=== PATIENT | male | born 1980 | race American Indian/Alaskan Native ===

== ENCOUNTER 2016-08-31 23:14 | Inpatient (IN) | payer BC ==
[2016-08-31] MEDS ORDERED: ATIVAN ONE ×2 (23:27→23:28)
[2016-08-31] MEDS ORDERED: ATIVAN IV ONE (23:50)
[2016-08-31 23:54] LABS: Hematocrit 55.7 % (35.5-45.6); Hemoglobin 17.6 gm/dl (11.8-15.2); Mean Corpuscular HGB Conc 32 % (32-34); Mean Corpuscular Hemoglobin 30 pg (28-32); Mean Corpuscular Volume 95 fl (84-94); Platelet Count 394 K/mm3 (140-440); Red Blood Count 5.84 M/mm3 (3.65-5.03); Red Cell Distribution Width 13.7 % (13.2-15.2); White Blood Count 19.3 K/mm3 (4.5-11.0)
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
[2016-09-01 00:06] LABS: Albumin 4.3 g/dL (3.9-5); Albumin/Globulin Ratio 1.3 %; Alkaline Phosphatase 69 units/L (35-129); BUN/Creatinine Ratio 12.14; Bilirubin,Total 0.2 mg/dL (0.1-1.2); Blood Urea Nitrogen 17 mg/dL (9-20); Calcium 9.3 mg/dL (8.4-10.2); Chloride 96.3 mmol/L (98-107); Creatine Kinase 315 units/L (55-170); Glucose 171 mg/dL (75-100); Sodium 141 mmol/L (137-145); Total Protein 7.7 g/dL (6.3-8.2)
[2016-09-01 00:08] LABS: Anion Gap 41 mmol/L; Potassium 4.4 mmol/L (3.6-5.0)
[2016-09-01 00:09] LABS: Alanine Aminotransferase 25 units/L (7-56)
[2016-09-01 00:10] LABS: Carbon Dioxide 8 mmol/L (22-30)
[2016-09-01 00:25] LABS: Urine Drugs of Abuse Note Disclamer
[2016-09-01 00:43] LABS: Bilirubin,Urine NEG (Negative); Blood,Urine MOD (Negative); Ketones,Urine NEG (Negative); Leukocyte Esterase,Urine NEG (Negative); Mucus,Urine FEW /HPF; Nitrite,Urine NEG (Negative); Urobilinogen,Urine < 2.0 mg/dL (<2.0)
--- NOTE | 2016-09-01 01:07 | Cat Scan Report ---
FINAL REPORT PROCEDURE: CT HEAD/BRAIN WO CON TECHNIQUE: Computerized tomography of the head was performed without contrast material. HISTORY: fall, seizures COMPARISON: No prior studies are available for comparison. FINDINGS: Skull and scalp: Normal. Paranasal sinuses: Normal. Ventricles and subarachnoid spaces: Normal. Cerebrum: No evidence of hemorrhage, acute infarction or mass . Cerebellum and brainstem: No evidence of hemorrhage, acute infarction or mass. Vasculature: Normal. Comments: None. IMPRESSION: There is no evidence of an acute intracranial process
[2016-09-01] MEDS ORDERED: KEPPRA 1,000 MG/NS 0.75% 100ML 1,000 MG/100 ML BAG IV ONE (01:36)
[2016-09-01] MEDS ORDERED: HALDOL IM ONE (01:57)
[2016-09-01] MEDS ORDERED: HALDOL IM PRN (02:16)
--- NOTE | 2016-09-01 02:58 | Admit Criteria Form ---
Admission Criteria Documentation: SEIZURE Clinical Indications for Admission to Inpatient Care (Place 'X' for any and all applicable criteria): Admission is indicated for seizure and ANY ONE of the following(1)(2)(3)(4)(5): [ X]I. Inpatient admission required rather than observation care (Also use Seizure: Observation Care Criteria as appropriate) because of ANY ONE of the following: [X ]a) Altered mental status that is severe or persistent [ ]b) New focal neurologic deficit that is severe or persistent [ ]c) Metabolic disorder (eg, hypoglycemia, hyponatremia) that is severe or persistent [X ]d) Recurrent seizure [ ]e) Outpatient antiseizure regimen cannot be established (eg , patient cannot tolerate medication, initiation requires inpatient care) [ ]f) Need for ongoing intravenous infusion of antiseizure medication [ ]g) Cardiac arrhythmias of immediate concern [ ]h) Cerebral bleeding, hydrocephalus, or vasospasm monitoring (14) [ ]i) Increased intracranial pressure or cerebral edema monitoring (15) [ ]j) Other treatment or monitoring requiring inpatient admission [ ]II. Status epilepticus [A] or repetitive seizures not controlled with emergent treatment (6)(8) [ ]III. Brain disorder (eg, tumor, edema, and hydrocephalus) that requiring monitoring or intervention available only at inpatient level of care. [ ]IV. Brain insult (eg, severe trauma, stroke, drug toxicity, or withdrawal) that requires monitoring or intervention available only at inpatient level of care (10)(11) Extended stay beyond goal length of stay may be needed for (22) [ ]a) Complications of status epilepticus [ ]b) Refractory status epilepticus [ ]c) Etiology-specific therapy for conditions such as BAGMAN/WOMAN infection, head injury,eclampsia, severe metabolic abnormalities, and brain tumor [ ]d) Residual neurologic damage, [ ]e) Initiation of significant change to anticonvulsant treatment [ ]f) Older patients (65 years or older) [ ]g) Patient requiring intubation (eg, to protect airway) The original [employer] [employer] [employer] content created by [facility] has been revised. The portions of the content which have been revised are identified through the use of italic text or in bold, and [facility] has neither reviewed nor approved the modified material. All other unmodified content is copyright [facility] [employer]. Please see references footnoted in the original [facility] edition 2016 Admission Criteria Met: Yes
[2016-09-01] MEDS: NACL 0.9% 1000 ML 1,000 ML IV SCH ×3 (03:06→23:25)
[2016-09-01] MEDS: MORPHINE IV PRN ×2 (03:06→12:54)
[2016-09-01 03:57] LABS: BUN/Creatinine Ratio 13.63; Blood Urea Nitrogen 15 mg/dL (9-20); Calcium 8.4 mg/dL (8.4-10.2); Carbon Dioxide 24 mmol/L (22-30); Chloride 102.9 mmol/L (98-107); Glucose 120 mg/dL (75-100); Potassium 3.8 mmol/L (3.6-5.0); Sodium 140 mmol/L (137-145)
[2016-09-01 03:59] LABS: Anion Gap 17 mmol/L
[2016-09-01 04:41] LABS: ISTAT Base Excess -4; ISTAT DEVICE 0; ISTAT PH 7.348 (7.35-7.45); ISTAT PO2 80 (80-105); ISTAT SO2 95; ISTAT TCO2 23
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
[2016-09-01] MEDS: ROCEPHIN/NS 1 GM/50 ML 1 GM/50 ML BAG IV SCH (06:05)
[2016-09-01] MEDS: ATIVAN IV PRN (06:12)
[2016-09-01 06:43] LABS: Hematocrit 46.2 % (35.5-45.6); Hemoglobin 15.3 gm/dl (11.8-15.2); Mean Corpuscular HGB Conc 33 % (32-34); Mean Corpuscular Hemoglobin 30 pg (28-32); Mean Corpuscular Volume 90 fl (84-94); Platelet Count 251 K/mm3 (140-440); Red Blood Count 5.12 M/mm3 (3.65-5.03); Red Cell Distribution Width 13.1 % (13.2-15.2); White Blood Count 17.7 K/mm3 (4.5-11.0)
[2016-09-01 06:52] LABS: Anisocytosis 1+; Basophils % (Manual) 0 % (0.0-1.8); Blastocytes % (Manual) 0 %; Hypochromasia 1+; Macrocytosis Few
[2016-09-01 06:53] LABS: Diff Status Complete; Large Platelets Few
--- NOTE | 2016-09-01 10:03 | XRay Report ---
Left humerus 2 views: History: Pain. Findings: No fracture, periosteal reaction or lytic lesion. No soft tissue calcification. Impression: Essentially negative left humerus.
--- NOTE | 2016-09-01 10:03 | XRay Report ---
Left forearm single view: History: Arm pain. Findings: There is catheter noted in the soft tissue dorsal aspect of forearm. No periosteal reaction or lytic lesion. Impression: Single view limited study. No bony abnormality.
--- NOTE | 2016-09-01 10:04 | XRay Report ---
Single view chest: History: Shortness of breath. Findings: Normal cardiomediastinal silhouette. Trachea is midline. No consolidation, pneumothorax or pleural effusion. Impression: No acute cardiopulmonary findings.
--- NOTE | 2016-09-01 11:21 | Progress Note ---
Assessment and Plan Assessment and plan: 1. Seizure disorder. Patient's reports that patient may have what sounds like absence seizures as a child around the age of 17. Patient with no seizure activity as noted in the HPI. No seizure activity since admission. Check EEG and MRI of the brain. 2. SIRS. Patient with no evidence or source of infection. However, patient with leukocytosis and elevated lactic acid levels. We will follow-up blood cultures. Continue empiric ceftriaxone. 3. Left arm pain. Etiology is unknown. Check sedimentation rate. Plain films are negative. Consider orthopedics consultation. 4. Acute encephalopathy. Etiology secondary to #1. Resolved. History Interval history: No new issues overnight. Hospitalist Physical - Constitutional Vitals: Temp Pulse Resp BP Pulse Ox 99.9 F H 97 H 22 162/85 95 09/01/16 07:40 09/01/16 07:40 09/01/16 07:40 09/01/16 07:40 09/01/16 07:40 General appearance: Present: no acute distress, well-nourished - EENT Eyes: Present: PERRL, EOM intact ENT: hearing intact, clear oral mucosa, dentition normal - Neck Neck: Present: supple, normal ROM - Respiratory Respiratory effort: normal Respiratory: bilateral: CTA - Cardiovascular Rhythm: regular Heart Sounds: Present: S1 & S2. Absent: gallop, rub - Extremities Extremities: no ischemia, No edema, Full ROM - Abdominal General gastrointestinal: soft, non-tender, non-distended, normal bowel sounds - Integumentary Integumentary: Present: clear, warm, dry - Neurologic Neurologic: CNII-XII intact, moves all extremities Results - Labs CBC & Chem 7: 09/01/16 05:56 09/01/16 03:15 Labs: Laboratory Last Values WBC 17.7 K/mm3 (4.5-11.0) H 09/01/16 05:56 RBC 5.12 M/mm3 (3.65-5.03) H 09/01/16 05:56 Hgb 15.3 gm/dl (11.8-15.2) H 09/01/16 05:56 Hct 46.2 % (35.5-45.6) H D 09/01/16 05:56 MCV 90 fl (84-94) D 09/01/16 05:56 MCH 30 pg (28-32) 09/01/16 05:56 MCHC 33 % (32-34) 09/01/16 05:56 RDW 13.1 % (13.2-15.2) L 09/01/16 05:56 Plt Count 251 K/mm3 (140-440) 09/01/16 05:56 Lymph # Cloth Doubling Machine Operator 08/31/16 23:25 Add Manual Diff Complete 08/31/16 23:25 Total Counted 100 08/31/16 23:25 Seg Neuts % (Manual) 30.0 % (40.0-70.0) L 08/31/16 23:25 Band Neutrophils % 16.0 % 08/31/16 23:25 Lymphocytes % (Manual) 23.0 % (13.4-35.0) 08/31/16 23:25 Reactive Lymphs % (Man) 0 % 08/31/16 23:25 Monocytes % (Manual) 24.0 % (0.0-7.3) H 08/31/16 23:25 Eosinophils % (Manual) 1.0 % (0.0-4.3) 08/31/16 23:25 Basophils % (Manual) 0 % (0.0-1.8) 08/31/16 23:25 Metamyelocytes % 6.0 % 08/31/16 23:25 Myelocytes % 0 % 08/31/16 23:25 Promyelocytes % 0 % 08/31/16 23:25 Blast Cells % 0 % 08/31/16 23:25 Nucleated RBC % Not Reportable 08/31/16 23:25 Seg Neutrophils # Man 5.8 K/mm3 (1.8-7.7) 08/31/16 23:25 Band Neutrophils # 3.1 K/mm3 08/31/16 23:25 Lymphocytes # (Manual) 4.4 K/mm3 (1.2-5.4) 08/31/16 23:25 Abs React Lymphs (Man) 0.0 K/mm3 08/31/16 23:25 Monocytes # (Manual) 4.6 K/mm3 (0.0-0.8) H 08/31/16 23:25 Eosinophils # (Manual) 0.2 K/mm3 (0.0-0.4) 08/31/16 23:25 Basophils # (Manual) 0.0 K/mm3 (0.0-0.1) 08/31/16 23:25 Metamyelocytes # 1.2 K/mm3 08/31/16 23:25 Myelocytes # 0.0 K/mm3 08/31/16 23:25 Promyelocytes # 0.0 K/mm3 08/31/16 23:25 Blast Cells # 0.0 K/mm3 08/31/16 23:25 WBC Morphology Not Reportable 08/31/16 23:25 Hypersegmented Neuts Not Reportable 08/31/16 23:25 Hyposegmented Neuts Not Reportable 08/31/16 23:25 Hypogranular Neuts Not Reportable 08/31/16 23:25 Smudge Cells Not Reportable 08/31/16 23:25 Toxic Granulation Not Reportable 08/31/16 23:25 Toxic Vacuolation Not Reportable 08/31/16 23:25 Dohle Bodies Not Reportable 08/31/16 23:25 Pelger-Huet Anomaly Not Reportable 08/31/16 23:25 Himanshu Rods Not Reportable 08/31/16 23:25 Platelet Estimate Appears normal 08/31/16 23:25 Clumped Platelets Not Reportable 08/31/16 23:25 Plt Clumps, EDTA Not Reportable 08/31/16 23:25 Large Platelets Few 08/31/16 23:25 Giant Platelets Not Reportable 08/31/16 23:25 Platelet Satelliting Not Reportable 08/31/16 23:25 Plt Morphology Comment Not Reportable 08/31/16 23:25 RBC Morphology Not Reportable 08/31/16 23:25 Dimorphic RBCs Not Reportable 08/31/16 23:25 Polychromasia Not Reportable 08/31/16 23:25 Hypochromasia 1+ 08/31/16 23:25 Poikilocytosis Not Reportable 08/31/16 23:25 Anisocytosis 1+ 08/31/16 23:25 Microcytosis Not Reportable 08/31/16 23:25 Macrocytosis Few 08/31/16 23:25 Spherocytes Not Reportable 08/31/16 23:25 Pappenheimer Bodies Not Reportable 08/31/16 23:25 Sickle Cells Not Reportable 08/31/16 23:25 Target Cells Not Reportable 08/31/16 23:25 Tear Drop Cells Not Reportable 08/31/16 23:25 Ovalocytes Not Reportable 08/31/16 23:25 Helmet Cells Not Reportable 08/31/16 23:25 [place] Bodies Not Reportable 08/31/16 23:25 [place] Rings Not Reportable 08/31/16 23:25 Luna Cells Not Reportable 08/31/16 23:25 Bite Cells Not Reportable 08/31/16 23:25 Crenated Cell Not Reportable 08/31/16 23:25 Elliptocytes Not Reportable 08/31/16 23:25 Acanthocytes (Spur) Not Reportable 08/31/16 23:25 Rouleaux Not Reportable 08/31/16 23:25 Hemoglobin C Crystals Not Reportable 08/31/16 23:25 Schistocytes Not Reportable 08/31/16 23:25 Malaria parasites Not Reportable 08/31/16 23:25 [place] Bodies Not Reportable 08/31/16 23:25 Hem Pathologist Commnt No 08/31/16 23:25 POC ABG pH 7.348 (7.35-7.45) L 09/01/16 04:32 POC ABG pCO2 40.0 (35-45) 09/01/16 04:32 POC ABG pO2 80 (80-105) 09/01/16 04:32 POC ABG HCO3 22.0 09/01/16 04:32 POC ABG Total CO2 23 09/01/16 04:32 POC ABG O2 Sat 95 09/01/16 04:32 POC ABG Base Excess -4 09/01/16 04:32 FiO2 21 % 09/01/16 04:32 Sodium 140 mmol/L (137-145) 09/01/16 03:15 Potassium 3.8 mmol/L (3.6-5.0) 09/01/16 03:15 Chloride 102.9 mmol/L (98-107) 09/01/16 03:15 Carbon Dioxide 24 mmol/L (22-30) D 09/01/16 03:15 Anion Gap 17 mmol/L 09/01/16 03:15 BUN 15 mg/dL (9-20) 09/01/16 03:15 Creatinine 1.1 mg/dL (0.8-1.5) 09/01/16 03:15 Estimated GFR > 60 ml/min 09/01/16 03:15 BUN/Creatinine Ratio 13.63 % 09/01/16 03:15 Glucose 120 mg/dL (75-100) H 09/01/16 03:15 Calcium 8.4 mg/dL (8.4-10.2) 09/01/16 03:15 Total Bilirubin 0.2 mg/dL (0.1-1.2) 08/31/16 23:25 AST 36 units/L (5-40) 08/31/16 23:25 ALT 25 units/L (7-56) 08/31/16 23:25 Alkaline Phosphatase 69 units/L (35-129) 08/31/16 23:25 Total Creatine Kinase 315 units/L (55-170) H 08/31/16 23:25 Troponin T < 0.010 ng/mL (0.00-0.029) 08/31/16 23:25 Total Protein 7.7 g/dL (6.3-8.2) 08/31/16 23:25 Albumin 4.3 g/dL (3.9-5) 08/31/16 23:25 Albumin/Globulin Ratio 1.3 % 08/31/16 23:25 TSH 6.770 mlU/mL (0.270-4.200) H 08/31/16 23:25 Urine Color Straw (Yellow) 09/01/16 00:13 Urine Turbidity Clear (Clear) 09/01/16 00:13 Urine pH 5.0 (5.0-7.0) 09/01/16 00:13 Ur Specific Schuyler 1.014 (1.003-1.030) 09/01/16 00:13 Urine Protein 30 mg/dl mg/dL (Negative) 09/01/16 00:13 Urine Glucose (UA) Neg mg/dL (Negative) 09/01/16 00:13 Urine Ketones Neg mg/dL (Negative) 09/01/16 00:13 Urine Blood Mod (Negative) 09/01/16 00:13 Urine Nitrite Neg (Negative) 09/01/16 00:13 Urine Bilirubin Neg (Negative) 09/01/16 00:13 Urine Urobilinogen < 2.0 mg/dL (<2.0) 09/01/16 00:13 Ur Leukocyte Esterase Neg (Negative) 09/01/16 00:13 Urine WBC (Auto) 1.0 /HPF (0.0-6.0) 09/01/16 00:13 Urine RBC (Auto) 2.0 /HPF (0.0-6.0) 09/01/16 00:13 Amorphous Crystals 1+ 09/01/16 00:13 Urine Mucus Few /HPF 09/01/16 00:13 Urine Opiates Screen Presumptive negative 09/01/16 00:13 Urine Methadone Screen Presumptive negative 09/01/16 00:13 Ur Barbiturates Screen Presumptive negative 09/01/16 00:13 Ur Phencyclidine Scrn Presumptive negative 09/01/16 00:13 Ur Amphetamines Screen Presumptive negative 09/01/16 00:13 U Benzodiazepines Scrn Presumptive negative 09/01/16 00:13 Urine Cocaine Screen Presumptive negative 09/01/16 00:13 U Marijuana (THC) Screen Presumptive positive 09/01/16 00:13 Drugs of Abuse Note Disclamer 09/01/16 00:13
[2016-09-01] MEDS: KEPPRA 1,000 MG in NACL 0.9% 100 ML IV SCH ×2 (12:30→23:25)
[2016-09-01] MEDS: LOVENOX SUB-Q SCH (12:57)
[2016-09-01] MEDS ORDERED: ATIVAN IV ONE ×2 (23:50)
[2016-09-02] MEDS: ROCEPHIN/NS 1 GM/50 ML 1 GM/50 ML BAG IV SCH (06:18)
[2016-09-02] MEDS: MORPHINE IV PRN (06:44)
[2016-09-02] MEDS: ATIVAN IV PRN (08:40)
[2016-09-02] MEDS: KEPPRA 1,000 MG in NACL 0.9% 100 ML IV SCH (14:33)
[2016-09-02] MEDS: LOVENOX SUB-Q SCH (14:35)
[2016-09-02] MEDS ORDERED: PERCOCET 5/325 PO PRN (15:15)
[2016-09-02] MEDS: KEPPRA PO SCH ×2 (16:20→23:07)
[2016-09-03] MEDS ORDERED: APRESOLINE IV SCH
[2016-09-03] MEDS ORDERED: APRESOLINE IV PRN (04:28)
[2016-09-03] MEDS: ROCEPHIN/NS 1 GM/50 ML 1 GM/50 ML BAG IV SCH (05:52)
--- NOTE | 2016-09-03 08:13 | Event Note ---
Date: 09/02/16 Nursing informs me that the patient and signed AMA and are leaving the hospital.
[2016-09-03 08:19] VITALS: BP 158/83
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
--- NOTE | 2016-09-03 11:11 | Electroencephalogram Report ---
Electroencephalogram EEG Date of exam: 09/03/16 History: 35 YO M w/ Hx seizure p/w recurrent episode of suspected seizure. Impression: Normal awake and sleep 20 minute routine EEG. There are no findings to suggest cerebral dysfunction, cortical irritability, epileptiform discharges or electrographic seizures. Please note however that a normal EEG does not completely exclude a clinical diagnosis of epilepsy. Description: The waking background shows an appropriate organization with well-defined anterior posterior voltage and frequency gradients. Posteriorly, there is a well -developed alpha rhythm of 8-9 Hz which is symmetrical and bilaterally reactive. Anteriorly, there is a pattern of lower voltage and slightly irregular theta and beta range frequencies. During drowsiness, there is attenuation of the background rhythms. The sleep background shows normal organization with well-formed sleep spindles and vertex waves which are synchronous and symmetrical. Throughout, the recording there are no epileptiform abnormalities, focal or lateralizing features, or significant interhemispheric findings. Interpretation: This is a digitally acquired 21-channel electroencephalogram. Both bipolar and referential montages were used in interpretation. Electrodes were placed in accordance with the International 10-20 system.
[2016-09-03] MEDS: KEPPRA PO SCH (11:45)
[2016-09-03] MEDS: LOVENOX SUB-Q SCH (12:09)
== END 2016-09-03 13:00 | disposition home or self-care (01) | DRG 100 ==
LOC: ED 23:14 → 3A 09-01 02:23
PROVIDERS: ADMIT Internal Medicine; ATTEND Hospitalist
PROC: 4A033R1 Measurement of Arterial Saturation, Peripheral, Percutaneous Approach (ICD-10-PCS; principal; 2016-09-01)
DX: G40.909 Epilepsy, unspecified, not intractable, without status epilepticus (principal); G93.49 Other encephalopathy; R65.10 Systemic inflammatory response syndrome (SIRS) of non-infectious origin without acute organ dysfunction; F17.210 Nicotine dependence, cigarettes, uncomplicated; S00.03XA Contusion of scalp, initial encounter; M79.632 Pain in left forearm; D72.829 Elevated white blood cell count, unspecified; F40.240 Claustrophobia
CPT/HCPCS: 36415; 36600; 70450; 71010; 80048; 80053; 80307; 81001; 82550; 82803; 82962; 84443; 84484; 85007; 85025; 85027; 93005; 93010; 95819; 96361; 96374; 99406; G8996-GN; G8998-GN; J0360; J0696; J1630; J1650; J1953; J2060; J2270; J7030

== ENCOUNTER 2020-09-16 15:54 | Emergency (ER) | payer SELFPAY ==
[2020-09-16 16:46] VITALS: BP 161/96
[2020-09-16] MEDS ORDERED: LIDOCAINE (1%) 10 MG/1 ML VIAL 20 ML MDV INFILTRATI ONE (18:34)
--- NOTE | 2020-09-16 18:34 | Emergency Department Report ---
ED Extremity Problem HPI - General Chief complaint: Extremity Injury, Lower Stated complaint: RT FOOT PAIN Source: patient Mode of arrival: Ambulatory Limitations: No Limitations - History of Present Illness Initial comments: 39-year-old male presents to the ER today complaint of right dorsal foot pain. Patient states that he accidentally hit his foot (more specifically the webspace of the 4th and 5th toe) on bed frame while swimming with his daughter about a month ago. He states that he went to [facility] at the time. They did x-rays which did not show any fracture. He states that he was told it was likely a sprain. Patient states that he was prescribed Motrin and Ultram for pain. Patient states that he still continues to have pain and swelling to the d orsal foot, feels like it is not getting better getting. . He denies any new injury since original injury. He does admit that he did have small split to skin in webspace of 4th and 5th toe at time of injruy. He also reports a swollen area between the fifth and fourth toes which he had since injury but it that has become exquisitely tender. He states that he wears steel toe boots, and when he walks the boots rub against that area making it worse. Reports dry skin to his foot, but denies any apparent bruising, erythema. He states that he does not have insurance right now therefore has not been able to follow-up with Ortho. He states that he has not been taking any thing for pain since he ran out of the Motrin and tramadol. MD Complaint: joint swelling, joint paint -: month(s) (1) - Related Data Previous Rx's Medication Instructions Recorded Last Taken Type Acetaminophen/Codeine [Tylenol 1 tab PO Q4H PRN #12 tab 09/16/20 Unknown Rx /Codeine # 3 tab] Clotrimazole 1% [Lotrimin] 1 applic TP BID #30 tube 09/16/20 Unknown Rx Ibuprofen [Motrin] 800 mg PO Q8HR PRN #30 tablet 09/16/20 Unknown Rx cephALEXin [Keflex] 500 mg PO Q6HR #40 capsule 09/16/20 Unknown Rx Allergies Allergy/AdvReac Type Severity Reaction Status Date / Time No Known Allergies Allergy Unverified 08/31/16 23:15 ED Review of Systems ROS: Stated complaint: RT FOOT PAIN Other details as noted in HPI Comment: All other systems reviewed and negative Eyes: denies: eye pain, eye discharge, vision change ENT: denies: ear pain, throat pain, dental pain, hearing loss Respiratory: denies: cough, shortness of breath, wheezing Cardiovascular: denies: chest pain, palpitations Endocrine: no symptoms reported Gastrointestinal: denies: abdominal pain, nausea, diarrhea Musculoskeletal: joint swelling, arthralgia. denies: back pain Skin: denies: rash, lesions Neurological: abnormal gait. denies: headache, weakness, paresthesias, vertigo Psychiatric: denies: anxiety, depression, auditory hallucinations, visual hallucinations, homicidal thoughts, suicidal thoughts Hematological/Lymphatic: denies: easy bleeding, easy bruising ED Past Medical Hx - Past Medical History Hx Congestive Heart Failure: No Hx Diabetes: No Hx Seizures: Yes Hx Asthma: No Hx COPD: No - Social History Smoking Status: Never Smoker Substance Use Type: Alcohol - Medications Home Medications: Home Medications Medication Instructions Recorded Confirmed Last Taken Type Acetaminophen/Codeine [Tylenol 1 tab PO Q4H PRN #12 tab 09/16/20 Unknown Rx /Codeine # 3 tab] Clotrimazole 1% [Lotrimin] 1 applic TP BID #30 tube 09/16/20 Unknown Rx Ibuprofen [Motrin] 800 mg PO Q8HR PRN #30 tablet 09/16/20 Unknown Rx cephALEXin [Keflex] 500 mg PO Q6HR #40 capsule 09/16/20 Unknown Rx ED Physical Exam - General Limitations: No Limitations General appearance: alert, in no apparent distress - Head Head exam: Present: atraumatic, normocephalic, normal inspection - Respiratory Respiratory exam: Present: normal lung sounds bilaterally. Absent: respiratory distress - Cardiovascular Cardiovascular Exam: Present: regular rate, normal rhythm, normal heart sounds - Expanded Lower Extremity Exam Right Foot/Toe exam: Present: tenderness (Severe tenderness to palpation over the dorsal aspect of the foot mainly over the third, fourth and fifth metatarsal bones, and exquisitely in the webspace of the fourth and fifth toe dorsally. ), swelling (There is moderate swelling to the dorsal aspect of the foot when compared to the left), erythema (Subtle erythema noted to the dorsal aspect of the foot when compared to the left but no streaking). Absent: abrasion, laceration, ecchymosis, deformity, crepidus, amputation, puncture wound, foreign body, tenderness at base of 5th metatarsal, nail avulsion, subungual hematoma Neuro vascular tendon exam: Present: no vascular compromise. Absent: abnormal cap refill, sensory deficit, tendon deficit Gait: Positive: observed and limited by pain 1 - Small exquisitely tender, swollen, fluctuant area noted - Neurological Exam Neurological exam: Present: alert, oriented X3, CN II-XII intact - Psychiatric Psychiatric exam: Present: normal affect, normal mood - Skin Skin exam: Present: other (Patient does have dry skin to the dorsal aspect of the foot. There is also skin fissures noted in the webspace of the fifth and fourth toe) ED Course Vital Signs 09/16/20 16:45 Temperature 99.2 F Pulse Rate 72 Respiratory 17 Rate Blood Pressure 161/96 [Right] O2 Sat by Pulse 95 Oximetry ED Medical Decision Making - Radiology Data Radiology results: report reviewed Patient: [address] MR#: [id number] : 1980 Acct:[id number] Age/Sex: 39 / M ADM Date: 09/16/20 Loc: ED Attending Dr: Ordering Physician: PELON LAND Date of Service: 09/16/20 Procedure(s): XR foot 3+V RT Accession Number(s): [id number] cc: PELON LAND Fluoro Time In Minutes: RIGHT FOOT 3 VIEWS 1843 INDICATION: foot pain/swelling COMPARISON: None available. FINDINGS: No soft tissue gas is noted. Foreign bodies are obvious. No fractures or dislocations are seen. Moderate tarsal degenerative changes are noted. Minimal inferior and mild posterior calcaneal spurring are seen. Tiny bony density on lateral view in the distal tarsal area dorsally is probably old. No obvious bony erosions are seen. Signer Name: Clarence Jon MD Signed: 09/16/2020 7:49 PM Workstation Name: [id number] Transcribed By: Dictated By: Clarence Jon MD Electronically Authenticated By: Clarence Jon MD Signed Date/Time: 09/16/201948 DD/ 46 TD/TT: - Medical Decision Making 39-year-old male presents to the ER today complaint of right dorsal foot pain. Patient states that he accidentally hit his foot (more specifically the webspace of the 4th and 5th toe) on bed frame while swimming with his daughter about a month ago. He states that he went to [facility] at the time. They did x-rays which did not show any fracture. He states that he was told it was likely a sprain. Patient states that he was prescribed Motrin and Ultram for pain. Patient states that he still continues to have pain and swelling to the dorsal foot, feels like it is not getting better getting. . He denies any new injury since original injury. He does admit that he did have small split to skin in webspace of 4th and 5th toe at time of injruy. He also reports a swollen area between the fifth and fourth toes which he had since injury but it that has become exquisitely tender. He states that he wears steel toe boots, and when he walks the boots rub against that area making it worse. Reports dry skin to his foot, but denies any apparent bruising, erythema. He states that he does not have insurance right now therefore has not been able to follow-up with Ortho. He states that he has not been taking any thing for pain since he ran out of the Motrin and tramadol. 2042: X-ray of the foot shows no soft tissue gas, fracture or dislocation. It does report foreign bodies are obvious but I reviewed the x-ray myself and no FB obviously seen on xray. Patient likely has fungal skin infection but there is concern for possible associate cellulitis especially around the webspace of the 4th and 5th toe. There is no signs of infected tenosynovitis, compartment syndrome or severe infection requiring labs or admission at this time. He is also afebrile, well-appearing, not toxic and not in any acute distress. He is a ble to bear weight but with a mild limp. Outpatient treatment with topical antifungal cream and oral antibiotics and something for pain is appropriate at this time. but The patient was instructed on importance of following up with buttonhole maker hand for outpatient MRI to rule out ligament/tendon injury. Patient expressed understanding of instructions and agree with plan. Patient stable at time of discharge. Critical care attestation.: If time is entered above; I have spent that time in minutes in the direct care of this critically ill patient, excluding procedure time. ED Disposition Clinical Impression: Contusion, foot, Cellulitis of foot, Tinea pedis Disposition: DC- TO HOME OR SELFCARE Is pt being admited?: No Does the pt Need Aspirin: No Condition: Stable Instructions: Cellulitis, Adult, [id number], Athlete's Foot, Foot Contusion Additional Instructions: Take the Keflex and use the antifungal cream as prescribed. Take the Motrin and Tylenol threes as prescribed. It is important that you follow-up with the buttonhole maker hand listed on your discharge instructions for further evaluation and possible outpatient MRI. Return to the ER if your symptoms changes or worsens in any way. Prescriptions: cephALEXin [Keflex] 500 mg PO Q6HR #40 capsule Clotrimazole 1% [Lotrimin] 1 applic TP BID #30 tube Ibuprofen [Motrin] 800 mg PO Q8HR PRN #30 tablet PRN Reason: Pain Acetaminophen/Codeine [Tylenol /Codeine # 3 tab] 1 tab PO Q4H PRN #12 tab PRN Reason: PAin Referrals: RAMONITA BRADSHAW DPM [Staff Physician] - 3-5 Days Forms: Work/School Release Form(ED) Time of Disposition: 20:53
[2020-09-16] MEDS ORDERED: IBUPROFEN 800 MG TAB PO ONE (18:35)
--- NOTE | 2020-09-16 19:53 | XRay Report ---
RIGHT FOOT 3 VIEWS 184 INDICATION: foot pain/swelling COMPARISON: None available. FINDINGS: No soft tissue gas is noted. Foreign bodies are obvious. No fractures or dislocations are s een. Moderate tarsal degenerative changes are noted. Minimal inferior and mild posterior calcaneal sp urring are seen. Tiny bony density on lateral view in the distal tarsal area dorsally is probably old . No obvious bony erosions are seen. Signer Name: Clarence Jon MD Signed: 09/16/2020 7:49 PM Workstation Name: [id number]
== END 2020-09-17 | disposition home or self-care (01) ==
LOC: ED 15:54
DX: S90.31XA Contusion of right foot, initial encounter (principal); B35.3 Tinea pedis; G40.909 Epilepsy, unspecified, not intractable, without status epilepticus; Z79.899 Other long term (current) drug therapy; W22.8XXA Striking against or struck by other objects, initial encounter; Y93.89 Activity, other specified; Y92.89 Other specified places as the place of occurrence of the external cause; Y99.8 Other external cause status
CPT/HCPCS: 99283

== ENCOUNTER 2021-03-18 15:36 | Emergency (ER) | payer OTHER ==
[2021-03-18 15:46] VITALS: BP 157/78
--- NOTE | 2021-03-18 16:08 | Emergency Department Report ---
Minor Respiratory - HPI Chief Complaint: Sore Throat Stated Complaint: CHEST ACHE/THROAT PAIN Time Seen by Provider: 03/18/21 15:50 Duration: 1 Day Severity: mild Minor Respiratory: Yes Rhinorrhea, Yes Sore Throat, Yes Able to Tolerate Fluids, Yes Cough, No Ear Pain, No Sick Contacts, No Hemoptysis, No Chest Pain, No Shortness of Breath, No Fever Other History: 40-year-old -Swedish male presents to the emergency room for 2 day history of nasal congestion throat irritation and intermittent cough. Patient states that he works at [employer] and they use a lot of chemicals such as ammonia bleach. Patient states that it irritates him at times. He reports that he took Sudafed. He reports a history of diabetes and states his blood sugars have been below 200. He is currently on Metformin 500 mg twice a day. Patient denies any fever chills no nausea no vomiting no chest pain no shortness of breath no headache. Patient is unvaccinated. Currently has no known drug allergies. Patient does have a primary care provider at [facility] in [place]. ED Review of Systems ROS: Stated complaint: CHEST ACHE/THROAT PAIN Other details as noted in HPI Comment: All other systems reviewed and negative ED Past Medical Hx - Past Medical History Hx Congestive Heart Failure: No Hx Diabetes: No Hx Seizures: Yes Hx Asthma: No Hx COPD: No - Surgical History Past Surgical History?: No - Social History Smoking Status: Never Smoker Substance Use Type: Alcohol - Medications Home Medications: Home Medications Medication Instructions Recorded Confirmed Last Taken Type Acetaminophen/Codeine [Tylenol 1 tab PO Q4H PRN #12 tab 09/16/20 Unknown Rx /Codeine # 3 tab] Clotrimazole 1% [Lotrimin] 1 applic TP BID #30 tube 09/16/20 Unknown Rx Ibuprofen [Motrin] 800 mg PO Q8HR PRN #30 tablet 09/16/20 Unknown Rx cephALEXin [Keflex] 500 mg PO Q6HR #40 capsule 09/16/20 Unknown Rx Minor Respiratory Exam - Exam General: Vital signs noted. No distress. Alert and acting appropriately. HEENT: Yes Moist Mucous Membranes, No Pharyngeal Erythema, No Pharyngeal Exudates, No Rhinorrhea, No Conjuctival Injection, No Frontal Tenderness, No Maxillary Tenderness Ear: Neither TM Bulge, Neither TM Erythema, Neither EAC Pain, Neither EAC Discharge Neck: Yes Supple, No Adenopathy Lungs: Yes Good Air Exchange, No Wheezes, No Ronchi, No Stridor, No Cough, No Labored Respirations, No Retractions, No Use of Accessory Muscles, No Other Abnormal Lung Sounds Heart: Yes Regular, No Murmur Abdomen: Yes Normal Bowel Sounds, No Tenderness, No Peritoneal Signs Skin: No Rash, No Edema Neurologic: Alert and oriented, no deficits. Musculoskeletal: Unremarkable. ED Course Vital Signs 03/18/21 15:43 Temperature 98.5 F Pulse Rate 72 Respiratory 16 Rate Blood Pressure 157/78 [Left] O2 Sat by Pulse 95 Oximetry ED Medical Decision Making - Medical Decision Making 40-year-old -Swedish male presents to the emergency room for 2 day history of nasal congestion throat irritation and intermittent cough. Patient states that he works at [employer] and they use a lot of chemicals such as ammonia bleach. Patient states that it irritates him at times. He reports that he took Sudafed. He reports a history of diabetes and states his blood sugars have been below 200. He is currently on Metformin 500 mg twice a day. Patient denies any fever chills no nausea no vomiting no chest pain no shortness of breath no headache. Patient is unvaccinated. Currently has no known drug allergies. Patient does have a primary care provider at [facility] in [place]. Recommend [id number] Flonase, Zyrtec-D increase your fluids avoid irritants and follow-up with your primary care provider. Tylenol or ibuprofen as needed for any pain. Critical care attestation.: If time is entered above; I have spent that time in minutes in the direct care of this critically ill patient, excluding procedure time. ED Disposition Clinical Impression: Allergic rhinitis Disposition: HOME / SELF CARE / HOMELESS Is pt being admited?: No Does the pt Need Aspirin: No Condition: Stable Instructions: Allergic Rhinitis, Adult, Qyce-hq-Nita Additional Instructions: Recommend [id number] Flonase, Zyrtec-D increase your fluids avoid irritants and follow-up with your primary care provider. Tylenol or ibuprofen as needed for any pain. Referrals: [facility] [Other] - 3-5 Days Forms: Work/School Release Form(ED)
== END 2021-03-18 16:45 | disposition home or self-care (01) ==
LOC: ED 15:36
DX: J30.9 Allergic rhinitis, unspecified (principal); R56.9 Unspecified convulsions
CPT/HCPCS: 99281

== ENCOUNTER 2021-06-17 21:33 | Emergency (ER) | payer OTHER ==
--- NOTE | 2021-06-17 21:37 | Emergency Department Report ---
ED General Adult HPI - General Stated complaint: CP Time Seen by Provider: 06/17/21 21:35 - History of Present Illness Initial comments: Patient presents with a burning chest pain for several weeks duration. This is worse with cough. It is substernally located. The pain does not radiate or migrate. It is not exertional. It is not positional. It is not pleuritic. He states that it is only in the substernal area. He came in for evaluation and tr eatment. Cough has been nonproductive. He does not feel short of breath. There is no pain or swelling in the legs but there is no recent travel or trauma. He has no other complaints at this time. - Related Data Previous Rx's Medication Instructions Recorded Last Taken Type Acetaminophen/Codeine [Tylenol 1 tab PO Q4H PRN #12 tab 09/16/20 Unknown Rx /Codeine # 3 tab] Clotrimazole 1% [Lotrimin] 1 applic TP BID #30 tube 09/16/20 Unknown Rx Ibuprofen [Motrin] 800 mg PO Q8HR PRN #30 tablet 09/16/20 Unknown Rx cephALEXin [Keflex] 500 mg PO Q6HR #40 capsule 09/16/20 Unknown Rx Allergies Allergy/AdvReac Type Severity Reaction Status Date / Time No Known Allergies Allergy Unverified 08/31/16 23:15 ED Review of Systems ROS: Stated complaint: CP Other details as noted in HPI Comment: All other systems reviewed and negative Constitutional: denies: fever ENT: denies: epistaxis Respiratory: see HPI Cardiovascular: as per HPI Endocrine: denies: unexplained weight loss Gastrointestinal: denies: abdominal pain Genitourinary: denies: hematuria Musculoskeletal: denies: back pain Skin: denies: rash Neurological: denies: headache Hematological/Lymphatic: denies: easy bruising ED Past Medical Hx - Past Medical History Hx Congestive Heart Failure: No Hx Diabetes: No Hx Seizures: Yes Hx Asthma: No Hx COPD: No - Family History Family history: no significant - Social History Smoking Status: Never Smoker Substance Use Type: Alcohol - Medications Home Medications: Home Medications Medication Instructions Recorded Confirmed Last Taken Type Acetaminophen/Codeine [Tylenol 1 tab PO Q4H PRN #12 tab 09/16/20 Unknown Rx /Codeine # 3 tab] Clotrimazole 1% [Lotrimin] 1 applic TP BID #30 tube 09/16/20 Unknown Rx Ibuprofen [Motrin] 800 mg PO Q8HR PRN #30 tablet 09/16/20 Unknown Rx cephALEXin [Keflex] 500 mg PO Q6HR #40 capsule 09/16/20 Unknown Rx ED Physical Exam - General Limitations: No Limitations, Other (Pulse ox noted and normal) General appearance: alert, in no apparent distress - Head Head exam: Present: atraumatic, normocephalic - Eye Eye exam: Present: normal appearance, EOMI - ENT ENT exam: Present: normal orophraynx, normal external ear exam - Neck Neck exam: Present: normal inspection. Absent: meningismus - Respiratory Respiratory exam: Present: normal lung sounds bilaterally. Absent: respiratory distress - Cardiovascular Cardiovascular Exam: Present: regular rate, normal rhythm - GI/Abdominal GI/Abdominal exam: Present: soft. Absent: distended, tenderness - Extremities Exam Extremities exam: Absent: pedal edema, calf tenderness - Back Exam Back exam: Absent: CVA tenderness (R), CVA tenderness (L) - Neurological Exam Neurological exam: Present: alert, oriented X3, CN II-XII intact, normal gait. Absent: motor sensory deficit - Psychiatric Psychiatric exam: Present: normal affect, normal mood - Skin Skin exam: Present: warm, dry ED Course Vital Signs 06/17/21 21:41 Temperature 98.7 F Pulse Rate 58 L Respiratory 18 Rate Blood Pressure 142/90 [Right] O2 Sat by Pulse 100 Oximetry - Reevaluation(s) Reevaluation #1: 06/17/21 22:57 Chest x-ray and EKG were noted. Patient was discharged. Old records noted. ED Medical Decision Making - EKG Data -: EKG Interpreted by Me - EKG Data 06/17/21 22:57 2239-EKG shows normal sinus rhythm at 55. He is bradycardic. There is a normal QRS at 106. QT corrected is normal at 405. Patient has no ST elevation to suggest STEMI. There is no ST depression suggestive of ischemia. There is no ectopy noted. - Radiology Data Radiology results: report reviewed - Medical Decision Making Patient presents with a prolonged history of burning chest pain. There is no EKG change suggestive of STEMI. This is not exertional. I do not believe this represents ACS. Patient has no URI symptoms that are significant. There is no pneumonia. He does not have a pneumothorax on x-ray. Patient does not have a pulse deficit or wide mediastinum suggestive of aortic dissection. This could be referred pain from acid reflux or some other GI source. This could be referred from pleurisy. Regardless, he does not appear to be septic or toxic. There is no indication for ongoing management or treatment at this time. He was referred to his PCP for recheck. Critical Care Time: No Critical care attestation.: If time is entered above; I have spent that time in minutes in the direct care of this critically ill patient, excluding procedure time. ED Disposition Clinical Impression: Chest pain Qualifiers: Chest pain type: unspecified Qualified Code(s): R07.9 - Chest pain, unspecified Disposition: 01 HOME / SELF CARE / HOMELESS Is pt being admited?: No Condition: Stable Instructions: Nonspecific Chest Pain, Adult Additional Instructions: Drink plenty of water. Continue home medication. Follow-up with your family doctor for recheck. Use Robitussin [id number] for cough. Continue to use Tylenol as needed for pain. Referrals: PRIMARY CARE, [Referring] - 3-5 Days MARLENI ZAYAS MD [Staff Physician] - 3-5 Days
--- NOTE | 2021-06-17 22:14 | XRay Report ---
CHEST 2 VIEWS INDICATION / CLINICAL INFORMATION: CP. COMPARISON: None available. FINDINGS: SUPPORT DEVICES: None. HEART / MEDIASTINUM: No significant abnormality. LUNGS / PLEURA: No significant pulmonary or pleural abnormality. No pneumothorax. ADDITIONAL FINDINGS: No significant additional findings. IMPRESSION: 1. No acute findings. Signer Name: Martin Stovall MD Signed: 06/17/2021 10:09 PM Workstation Name: [id number]
[2021-06-17 23:50] VITALS: BP 130/77
--- NOTE | 2021-06-21 08:37 | Electrocardiograph Report ---
[facility] Test Date: 2021-06-17 Test Time: 22:39:23 Pat Name: [address] Department: Room: Gender: M Rental Coordinator: NADIA : 1980 Requested By: BLAZE TAO Order Number: [id number] Reading MD: Anup Dunn Measurements Intervals [place] Rate: 55 P: 59 AR: 176 QRS: 76 QRSD: 106 T: 56 QT: 424 QTc: 405 Interpretive Statements Slow sinus arrhythmia Otherwise, normal ECG No previous ECG available for comparison Electronically Signed On 06-21-2021 8:37:24 EST by Anup Dunn
== END 2021-06-17 23:54 | disposition home or self-care (01) ==
LOC: ED 21:33
DX: R07.9 Chest pain, unspecified (principal)
CPT/HCPCS: 71046; 93005; 99283